=== PATIENT | male | born 1935 | race Caucasian/White ===

== ENCOUNTER 2017-05-07 21:13 | Emergency (ER) | payer MEDICARE, OTHER ==
[~2017-05-07] VITALS: Ht 188 cm; Wt 63.6 kg
[2017-05-07] MEDS ORDERED: BRIM15DR8 OU (21:34)
[2017-05-07] MEDS ORDERED: OMEP20 PO (21:34)
[2017-05-07] MEDS ORDERED: SERT50TA12 PO (21:34)
[2017-05-07] MEDS ORDERED: FLUT16H NASAL (21:34)
[2017-05-07] MEDS ORDERED: XALA2.5OS OU (21:34)
[2017-05-07] MEDS ORDERED: VITAD1000 PO (21:34)
[2017-05-07] MEDS ORDERED: CETI-260 PO (21:34)
[2017-05-07] MEDS ORDERED: BUDE10.2 IH (21:34)
[2017-05-07] MEDS ORDERED: GABA-531 PO (21:34)
[2017-05-07] MEDS ORDERED: MULT1CAP32 PO (21:34)
[2017-05-07] MEDS ORDERED: OS500 PO (21:34)
[2017-05-07] MEDS ORDERED: ASPI-556 PO (21:34)
[2017-05-07] MEDS ORDERED: CAPS42.55 TP (21:34)
[2017-05-07 23:53] VITALS: BP 108/63
== END 2017-05-08 00:33 | disposition short-term general hospital (02) ==
LOC: EMS 21:16
DX: S12.9XXA Fracture of neck, unspecified, initial encounter (principal); M25.78 Osteophyte, vertebrae; S06.0X0A Concussion without loss of consciousness, initial encounter; J44.9 Chronic obstructive pulmonary disease, unspecified; J45.909 Unspecified asthma, uncomplicated; K21.9 Gastro-esophageal reflux disease without esophagitis; W07.XXXA Fall from chair, initial encounter; Y93.89 Activity, other specified; Y92.89 Other specified places as the place of occurrence of the external cause; Y99.8 Other external cause status
CPT/HCPCS: 70450; 72125; 99285